=== PATIENT | male | born 1965 | race Caucasian/White ===

== ENCOUNTER → 2021-01-30 | Outpatient (CLI) | payer BC | END | disposition home or self-care (01) | LOC: LABWHC1 14:44 | PROVIDERS: ATTEND Orthopaedic Surgery | DX: T56.894A Toxic effect of other metals, undetermined, initial encounter (principal) | CPT/HCPCS: 36415 ==

== ENCOUNTER → 2022-01-02 | Outpatient (CLI) | payer BC ==
--- NOTE | 2022-01-03 12:12 | CT ---
EXAMINATION TYPE: CT angio chest DATE OF EXAM: 01/02/2022 5:12 PM COMPARISON: 06/02/2016 HISTORY: History of aneurysm CT DLP: 1396.9 mGycm Automated exposure control for dose reduction was used. CONTRAST: CTA scan of the thorax is performed with IV Contrast, patient injected with 100 mL of Isovue 370, pul monary embolism protocol. . FINDINGS: CHEST: The heart is upper limits of normal in size without pericardial effusion. Redemonstrated aneur ysm of the ascending aorta at 4.5 cm, not significantly changed from prior. There is conventional arc h vessel branching anatomy and mild aneurysm of the upper descending thoracic aorta as well at 3.3 cm , unchanged. No thoracic lymphadenopathy. Heart is enlarged. No significant coronary artery calcification.. No evidence of consolidation. No pleural effusion thorax. Subsegmental linear changes most typical of atelectasis. There are 2 small nodules the largest measuring 5 mm within the right lower lobe card writer hand ior segment axial image 40 OTHER: Hypertrophic and degenerative changes spine. Hypodensity involving the upper pole right kidne y too small to characterize but stable. IMPRESSION: 1. Stable ascending aortic aneurysm measuring 4.5 cm in greatest dimension. 2. Mild cardiomegaly. 3. There is interval development of 2 small pulmonary nodules the largest measuring 5 mm right lower lobe. These are too small to characterize, 6 month follow-up CT chest recommended to confirm stabilit y.
== END | disposition home or self-care (01) ==
LOC: RADCTMAIN 16:26
PROVIDERS: ATTEND Internal Medicine Interventional Cardiology
DX: I71.2 Thoracic aortic aneurysm, without rupture (principal); I51.7 Cardiomegaly; R91.8 Other nonspecific abnormal finding of lung field
CPT/HCPCS: 71275; Q9967

== ENCOUNTER → 2022-01-10 | Outpatient (CLI) | payer BC ==
[2022-01-10 17:12] LABS: Basophils % (A) 1.6 %; Eosinophils # (A) 0.24 X 10*3/uL (0.04-0.35); Eosinophils % (A) 3.8 %; HCT 38.6 % (39.6-50.0); HGB 12.6 g/dL (13.0-17.0); Immature Grans, Automated 0.3 %; Lymphocytes # (A) 1.24 X 10*3/uL (0.90-5.00); Lymphocytes % (A) 19.9 %; MCHC 32.6 g/dL (32.0-37.0); MCV 88.9 fL (80.0-97.0); Mean Platelet Volume 10.5 fL (9.5-12.2); Monocytes # (A) 0.48 X 10*3/uL (0.20-1.00); Monocytes % (A) 7.7 %; NRBC Per 100 WBC 0 /100 WBCS (0.0-0.0); Neutrophils # (A) 4.16 X 10*3/uL (1.80-7.70); Neutrophils % (A) 66.7 %; Platelet Count 197 X 10*3/uL (140-440); RBC 4.34 X 10*6/uL (4.40-5.60); RDW 12.8 % (11.5-14.5); WBC 6.24 X 10*3/uL (4.50-10.00)
[2022-01-10 17:19] LABS: African American GFR (CKD) 76.8 (60.0-200.0); Albumin 4.5 g/dL (3.8-4.9); Albumin/Globulin Ratio 2.37 (1.60-3.17); Blood Urea Nitrogen 10.8 mg/dL (9.0-27.0); Calcium 9.1 mg/dL (8.7-10.3); Globulin 1.9 g/dL (1.6-3.3); Non-African American GFR(CKD) 66.3 (60.0-200.0); Potassium 4.4 mmol/L (3.5-5.5); Total Bilirubin 0.3 mg/dL (0.30-1.20); Total Protein 6.4 g/dL (6.2-8.2)
[2022-01-10 17:50] LABS: Chol/HDL Ratio 4.73 Ratio; LDL Cholesterol,Calculated 142.9 mg/dL (0.0-131.0)
== END | disposition home or self-care (01) ==
LOC: LABWHC1 08:54
PROVIDERS: ATTEND Internal Medicine Geriatric Medicine
DX: I35.1 Nonrheumatic aortic (valve) insufficiency (principal); I25.119 Atherosclerotic heart disease of native coronary artery with unspecified angina pectoris; R73.9 Hyperglycemia, unspecified
CPT/HCPCS: 36415; 80053; 80061; 83036; 83880; 84443; 85025

== ENCOUNTER → 2023-05-08 | Outpatient (CLI) | payer BC ==
--- NOTE | 2023-05-08 09:26 | XR ---
EXAMINATION TYPE: XR chest 2V DATE OF EXAM: 05/08/2023 COMPARISON: NONE HISTORY: Asthma and shortness of breath TECHNIQUE: Frontal and lateral views of the chest are obtained. FINDINGS: There is no focal air space opacity, pleural effusion, or pneumothorax seen. The cardiac silhouette size is within normal limits. The osseous structures are intact. IMPRESSION: No acute cardiopulmonary process.
[2023-05-08 13:26] LABS: Basophils # (A) 0.07 X 10*3/uL (0.00-0.10); Basophils % (A) 1.4 %; Eosinophils # (A) 0.15 X 10*3/uL (0.04-0.35); HCT 40.9 % (39.6-50.0); HGB 13.8 d/dL (12.0-15.0); Lymphocytes # (A) 0.93 X 10*3/uL (0.90-5.00); Lymphocytes % (A) 18.5 %; MCHC 33.7 d/dL (32.0-37.0); MCV 88.9 FL (80.0-97.0); Mean Platelet Volume 10.6 FL (9.5-12.2); Monocytes # (A) 0.39 X 10*3/uL (0.20-1.00); Monocytes % (A) 7.8 %; NRBC Per 100 WBC 0 X 10*3/uL (0.00-0.01); Neutrophils # (A) 3.46 X 10*3/uL (1.80-7.70); Neutrophils % (A) 68.9 %; Platelet Count 180 X 10*3/uL (140-440); WBC 5.02 X 10*3/uL (4.50-10.00)
[2023-05-08 14:12] LABS: Erythrocyte Sedimentation Rate 10 mm/Hr (0-20)
== END | disposition home or self-care (01) ==
LOC: RADXRMAIN 08:51
PROVIDERS: ATTEND Allergy & Immunology
DX: J45.30 Mild persistent asthma, uncomplicated (principal)
CPT/HCPCS: 71046; 82784; 85025; 85652

== ENCOUNTER → 2023-05-21 | Outpatient (CLI) | payer BC ==
--- NOTE | 2023-05-21 11:41 | CT ---
EXAMINATION TYPE: CT sinus wo con DATE OF EXAM: 05/21/2023 COMPARISON: None HISTORY: 58-year-old male J32.9, Chronic sinusitis. CT DLP: 630.7 mGycm Automated exposure control for dose reduction was used. TECHNIQUE: Noncontrast axial views of the paranasal sinuses were obtained. Coronal and sagittal refor matted images were obtained. FINDINGS: PARANASAL SINUSES: There is mild mucosal thickening anterior ethmoid air cells on both sides. Trace mucosal thickening bilateral sphenoid sinuses. Trace mucosal thickening floor of the left maxillary sinus. Otherwise, left frontal and right maxillary sinuses are well-pneumatized. There is no air-fluid level. Reactive rakel- osteogenesis is not seen. There is no destruction of the osseous diaz of the paranasal sinuses. THE NASAL CAVITY: The osteomeatal complexes are patent. Leftward nasal septal deviation. The imaged brain and orbits are normal in appearance. Mastoid air cells and middle ear cavities are well pneumatized. Reformatted images confirm above findings. IMPRESSION: 1. Scattered trace to mild mucosal thickening particularly involving the anterior ethmoid air cells, sphenoid sinuses, and floor of the left maxillary sinus. 2. Leftward nasal septal deviation.
== END | disposition home or self-care (01) ==
LOC: RADCTMAIN 09:49
PROVIDERS: ATTEND Allergy & Immunology
DX: J32.9 Chronic sinusitis, unspecified (principal); D80.1 Nonfamilial hypogammaglobulinemia; J34.2 Deviated nasal septum; J34.89 Other specified disorders of nose and nasal sinuses
CPT/HCPCS: 70486

== ENCOUNTER → 2025-02-07 | Outpatient (CLI) | payer MEDICARE ==
--- NOTE | 2025-02-07 15:52 | CT ---
EXAMINATION TYPE: CT angio chest DATE OF EXAM: 02/07/2025 COMPARISON: 01/02/2022 CLINICAL INDICATION: Male, 60 years old with history of I71.20 THORACIC AORTIC ANEURYSM, WITHOUT RUPT URE,; [facility], F/u for thoracic aortic aneurysm without rupture. TECHNIQUE: CTA scan of the thorax is performed with IV Contrast, patient injected with 100ml mL of Isovue 370, p ulmonary embolism protocol. MIP images are created and reviewed. CT DLP: 1357.[address] CTDI: mGy Automated exposure control for dose reduction was used. FINDINGS: There is stable aneurysmal dilatation of the ascending thoracic aorta which measures 4.5 cm. The aort ic root is mildly prominent at 3.9 cm. There is mild calcification of the aortic valve. There is stab le mild cardiomegaly. There is no mediastinal, hilar or axillary adenopathy. There is a new 2 mm nodule in the lingula. There is no suspicious lung mass or nodule. There is no airspace consolidation. There is no pleural effusion or pneumothorax. Limited scanning through the upper abdomen reveals no gross abnormality. There are no focal osseous lesions. IMPRESSION: 1.Stable 4.5 cm dilatation of the ascending thoracic aorta. 2. Stable mildly dilated aortic root at 3.9 cm with minimal calcification. 3. No acute cardiopulmonary disease. 4. mild stable cardiomegaly [facility], , 02/07/2025 3:49 PM
== END | disposition home or self-care (01) ==
LOC: RADCTMAIN 14:41
PROVIDERS: ATTEND Internal Medicine Interventional Cardiology
DX: I71.20 Thoracic aortic aneurysm, without rupture, unspecified (principal); I71.21 Aneurysm of the ascending aorta, without rupture; I51.7 Cardiomegaly
CPT/HCPCS: 71275; Q9967